=== PATIENT | female | born 2000 | race Caucasian/White ===

== ENCOUNTER 2025-02-21 07:41 | Emergency (ER) | payer OTHER ==
[~2025-02-21] VITALS: Ht 165.1 cm; Wt 59.0 kg
[~2025-02-21 07:41] MED LIST: PRED50TA PO
[2025-02-21 09:07] LABS: PLATELET COUNT (AUTO) 206 K/uL (179-408); RED BLOOD CELL COUNT(AUTO) 4.41 MIL/uL (3.63-4.92); RED CELL DISTRIBUTION WIDTH 15.7 % (12.3-17.7); WHITE BLOOD COUNT (AUTO) 5.6 K/uL (3.8-11.8)
[2025-02-21 09:18] LABS: CREATININE 0.7 mg/dL (0.6-1.3); SODIUM SERUM 135 mmol/L (136-145); UREA NITROGEN, BLOOD 8 mg/dL (7-18)
[2025-02-21 09:34] LABS: ASPARTATE AMINOTRANSFERASE 22 U/L (15-37); TOTAL PROTEIN, SERUM 7.1 g/dL (6.4-8.2)
[2025-02-21] MEDS ORDERED: KETOROLAC TROMETHAMINE 15 MG INJ ONE (10:04)
[2025-02-21] MEDS: KETOROLAC TROMETHAMINE 15 MG INJ IVP ONE (10:07)
[2025-02-21] MEDS ORDERED: IOHEXOL 350 100 ML INFUS..BTL ONE (10:21)
[2025-02-21] MEDS ORDERED: IV NORMAL SALINE 250 ML IV ONE (10:21)
[2025-02-21] MEDS ORDERED: SWABABLE VALVE TRANSFER SET EA MC ONE (10:21)
[2025-02-21 10:36] LABS: *MONOTEST POSITIVE (NEGATIVE)
[2025-02-21] MEDS ORDERED: BENZ-13 PO (12:30)
[2025-02-21 12:40] VITALS: BP 118/80; TEMP 98.2; O2SAT 99
== END 2025-02-21 12:48 | disposition home or self-care (01) ==
LOC: ER 07:41
DX: R09.1 Pleurisy (principal); R05.9 Cough, unspecified; R06.00 Dyspnea, unspecified; R07.9 Chest pain, unspecified; R10.2 Pelvic and perineal pain; G40.909 Epilepsy, unspecified, not intractable, without status epilepticus; Z79.52 Long term (current) use of systemic steroids; Z88.2 Allergy status to sulfonamides
CPT/HCPCS: 36415; 71045; 71275; 84484; 85025; 85651; 85730; 86308; A4606; A4663; J1885; Q9967